=== PATIENT | female | born 1955 | race Caucasian/White ===

== ENCOUNTER 2024-10-31 13:41 | Emergency (ER) | payer MEDICARE, OTHER, SELFPAY ==
[2024-10-31 13:53] VITALS: BP 165/95; BMI 48.8
--- NOTE | 2024-10-31 14:00 | EDRN ---
Pt has severe upper arm and bilateral shoulder pain w/ posterior neck pain,unable to even slightly touch areas from neck or shoulders or upper arms as pt screaming in pain. Pt also has numbness and tingling in lower arms.
--- NOTE | 2024-10-31 14:16 | ED.GENMED ---
History of Present Illness
General
Chief Complaint: Fall
Source: patient, family and ambulance crew
Time Seen by Provider: 10/31/24 13:55
History of Present Illness
History of Present Illness:
69-year-old female apparently tripped falling forward walking out of a store. She hit her head had her arms extended. Complaining of severe bilateral shoulder pain and neck pain. Initially had some weakness to the right arm. Is complaining of
some ongoing tingling to the arms and legs at times. Significant pain manage prior to ER arrival. Denies chest pain abdominal pain or other complaints
Past History
Past History
ED Past Medical History: HTN and Hypercholesterolemia
ED Past Surgical History: Gynecological and Orthopedic
Phy Exam
Physical Exam
Physical Exam:
TRAUMA EXAM:
VITAL SIGNS: Vital signs reviewed, cooperative. Elevated BMI
DISTRESS: No active disease
EYES: Pupils reactive, no orbital trauma
NOSE: No deformity or epistaxis
FACE AND SCALP: 6 cm vertical superficial laceration to the right upper scalp. 3 cm slightly V-shaped laceration to the right eyebrow
NECK: Towels surrounding the neck immobilizing the neck.
RESPIRATORY: No distress, breath sounds normal, no tender chest wall
CARDIAC: No murmur, pulses equal and strong
ABDOMEN: Soft nontender bowel sounds normal
SKIN: Skin intact no bleeding, color normal
EXTREMITIES: Significant tenderness to both shoulders bilaterally. Some distal clavicle tenderness bilaterally. Range of motion was not tested originally.
NEUROLOGICAL: Alert, oriented, no motor deficits. Security Control Room Officer normal. Good lower extremity strength.
PSYCH: Mood affect normal
Course
Orders/Labs/Results
Orders:
Orders
10/31/24 14:00
CT Cervical Spine W/o Iv Contr Urgent
Comment:
Reason For Exam: trauma
CT Chest/abd/pel W Iv Cont Urgent
Reason For Exam: trauma
CT Head W/o Iv Contrast Urgent
Comment:
Reason For Exam: trauma
Cardiac Monitoring- Treatment ONCE
10/31/24 14:01
0.9% Sodium Chloride 500 ml [Nss] 500 ml IV BOLUS
10/31/24 14:42
HYDROmorphone [Dilaudid] 0.5 mg IV NOW STA
10/31/24 14:44
Complete Blood Count/With Diff Urgent
Comprehensive Metabolic Panel Urgent
Lipase Urgent
10/31/24 15:13
Type+Screen Urgent
[employer] Wristband Number:
Lidocaine/Epinephrine/Tetracai [Let Topical Anesthetic Gel] 3 ml TOPICAL NOW STA
Tetanus/Diphth/Acelpertussis [Adacel] 0.5 ml IM .ONCE ONE
10/31/24 15:19
ABO2 Urgent
[employer] Wristband Number:
Associate notified that ABO2 has been ordered: [id number]
Date: 10/31/24
Time: 15:20
Power Screwdriver Operator ID: [id number]
10/31/24 15:46
Acetaminophen 1000MG/100Ml [Ofirmev] 1,000 mg in 100 ml IV ONCE
Acetaminophen IV Indication:: ED Narcotic History-ONCE
10/31/24 16:13
HYDROmorphone [Dilaudid] 1 mg IV NOW STA
Abnormal Lab Results
10/31/24
14:44
RBC 2.98 L 10^6/uL
(4.20-5.40)
Hgb 9.0 L g/dL
(12.0-16.0)
Hct 27.6 L %
(37.0-47.0)
MCHC 32.6 L g/dL
(33.0-37.0)
Absolute Lymphs (auto) 1.0 L 10^3/uL
(1.2-3.4)
Neutrophils % 76.5 H %
(42.2-75.2)
Lymphocytes % 13.4 L %
(20.5-51.1)
Sodium 132 L mmol/L
(135-145)
BUN 47 H mg/dl
(7-17)
Creatinine 1.4 H mg/dL
(0.6-1.0)
Glucose 114 H mg/dl
(70-99)
Total Protein 6.1 L g/dl
(6.3-8.2)
10/31/24 14:44
10/31/24 14:44
Vital Signs
Initial and Last Documented VS:
Initial Vital Signs
Temp Pulse Resp BP Pulse Ox
97.7 F 74 12 165/95 100
10/31/24 13:53 10/31/24 13:53 10/31/24 13:53 10/31/24 13:53 10/31/24 13:53
Last Documented Vital Signs
Temp Pulse Resp BP Pulse Ox
97.7 F 80 15 153/85 95
10/31/24 13:53 10/31/24 16:30 10/31/24 16:30 10/31/24 16:28 10/31/24 16:28
Procedures
Laceration Closure
Right upper forehead:
Status of Wound: clean
Size of Wound in cm: 6
Description of Wound Edges: sharp
Preparation: cleaned with saline and cleaned with Betadine
Revision/Debridement: routine- no revision
Wound exploration: explored to base- no FB
Type of Closure: Dermabond-skin glue
Right eyebrow:
Status of Wound: clean
Size of Wound in cm: 3
Description of Wound Edges: sharp
Preparation: cleaned with saline and cleaned with Betadine
Anesthesia: 1% Lidocaine
Revision/Debridement: routine- no revision
Wound exploration: explored to base- no FB
Type of Closure: single layer closure
Skin Closure Material: 5-0 nylon
Number of sutures: 7
MDM/Problems Addressed
Differential Diagnosis Includes:
I am very concerned either about a cervical issue or bilateral shoulder issue. She could not tolerate a c-collar. She has a large BMI. Towels were placed around the neck bilaterally. Careful immobilization during CT scan. Very low clinical
suspicion for chest or abdominal trauma. Vital signs are stable.
*Radiology
Radiology exam reviewed: radiology read reviewed (No acute findings)
*Pulse Oximetry
SaO2: 100
Oxygen Mode of Delivery: Room air
Patient hypoxic: no
*Pie Icer Machine Interpretation
Rate: normal
Interpretation: normal
Heart Rate: 80
Rhythm: sinus
*Critical Care Note
Total Time (30-74mins, 75-104mins- exclusive of procedures): 50
Update Note
Update Note:
Trauma alert was called to expedite workup. I am concerned with a spinal issue with the initial tingling and numbness she had in her arms and legs. She currently has strength in her arms and legs. But is in severe pain complaining of bilateral
shoulder pain. She could not tolerate the cervical collar. She has support bilaterally with towels. I stressed to the nurse to be very careful about moving her. Family updated on my concerns
1515... CTs are all stable. Patient is remained stable. Ongoing severe bilateral shoulder pain and neck pain. No acute neurologic issues. Warrants transfer to trauma. Patient had a previous surgery at [place]. We are contacting them for
potential transfer. She is anemic but she states she is normally anemic.
1550... Family updated. Patient has remained stable. Neurologically stable. Transfer approved.
1630.... Collar placed. Carefully with head in traction.
ED Attending Note
-
Portions of this chart may have been created with voice recognition software.� Occasional wrong word or��sound alike� substitutions may have occurred due to the inherent limitations of voice recognition software.
Discharge Plan
Departure
Patient Disposition: Acute Care Hospital
Date of Disposition: 10/31/24
Time of Disposition: 15:37
Discharge Problem:
Trip/fall, Possible spinal cord injury, Head injury, Forehead laceration x 2
Prescriptions:
No Action
polyethylene glycol 3350 17 gram Powder In Packet
17 g PO DAILY
tizanidine 4 mg tablet
4 mg PO HS
tizanidine 4 mg tablet
4 mg PO DAILYPRN PRN (Reason: cramps)
Theragen Tablet
1 tab PO DAILY
acetaminophen 500 mg Tablet
500 mg PO BID
morphine 15 mg tablet extended release
15 mg PO BID
docusate sodium 100 mg Tablet
100 mg PO DAILY
magnesium 200 mg Tablet
200 mg PO DAILY
olmesartan 40 mg tablet
40 mg PO DAILY
hydrochlorothiazide 12.5 mg tablet
12.5 mg PO DAILY
oxycodone 10 mg tablet
10 mg PO Q6H
cholecalciferol (vitamin D3) 50 mcg (2,000 unit) Tablet
50 mcg PO DAILY
omega [id number]-[id number]-fish oil [Fish Oil] 1,000 (120-180) mg Capsule
1 cap PO DAILY
Referrals:
NONE,* [Family Provider, Internal Medicine]
Hospital Transfer
Other hospital: [facility]
I certify that the patient requires transfer: Yes
Discussed case with accepting physician: Vangie
Reason for transfer: higher level of care
Interventions
Interventions:
*Risk Screen - Suicide Last Done: 10/31/24 13:53
*General Assessment Last Done: 10/31/24 13:53
*Neglect/Abuse Screening Last Done: 10/31/24 13:53
*ED- Fall Risk Assessment Last Done: 10/31/24 13:53
*ED COVID-19 Vaccine History Last Done: 10/31/24 15:04
*Nursing Disposition Last Done: 10/31/24 16:46
ED-Musculoskeletal Assessment Last Done: 10/31/24 14:15
ED- Neurological Assessment Last Done: 10/31/24 14:15
ED-Skin Assessment Last Done: 10/31/24 14:17
Discharge Date and Time
Discharge Date/Time: 10/31/24 16:48
Print Language: S[place]
[2024-10-31] MEDS: DILAUDID 0.5 MG IV (14:48)
[2024-10-31] MEDS: NSS 500 IV (14:50)
[2024-10-31 14:55] LABS: Hematocrit 27.6 % (37.0-47.0); Hemoglobin 9.0 g/dL (12.0-16.0); Mean Corp Hgb Conc. 32.6 g/dL (33.0-37.0); Mean Corpuscular Volume 92.6 fL (81.0-99.0); Nucleated Red Blood Cells % 0 %; Platelet Count 226 10^3/uL (130-400); Red Cell Dist. Width 13.3 % (11.5-14.5)
[2024-10-31 15:00] VITALS: BP 154/85
[2024-10-31] MEDS: LET TOPICAL ANESTHETIC GEL 3 ML TOPICAL (15:17)
[2024-10-31 15:18] LABS: ALT (SGPT) 15 U/L (0-35); AST (SGOT) 19 U/L (14-36); Albumin 3.7 g/dl (3.5-5.0); Alkaline Phosphatase 89 U/L (38-126); Blood Urea Nitrogen 47 mg/dl (7-17); Calcium 9.5 mg/dl (8.4-10.2); Carbon Dioxide 23 mmol/L (22-30); Chloride 105 mmol/L (98-107); Estimated Creatinine Clearance 49 ml/min; Glucose 114 mg/dl (70-99); Lipase 285 U/L (23-300); Potassium 5.0 mmol/L (3.5-5.1); Sodium 132 mmol/L (135-145); Total Protein 6.1 g/dl (6.3-8.2); eGFR 40.73
[2024-10-31] MEDS: ADACEL 0.5 ML IM (15:20)
[2024-10-31 16:00] VITALS: BP 152/77
[2024-10-31] MEDS: OFIRMEV 100 IV (16:05)
[2024-10-31] MEDS: DILAUDID 1 MG IV (16:20)
[2024-10-31 16:28] VITALS: BP 153/85
== END 2024-10-31 16:48 | disposition short-term general hospital (02) ==
LOC: EMR 13:41
PROVIDERS: EMERGENCY PHYSICIAN Emergency Medicine
DX: S09.90XA Unspecified injury of head, initial encounter (principal); S01.81XA Laceration without foreign body of other part of head, initial encounter; S01.111A Laceration without foreign body of right eyelid and periocular area, initial encounter; R20.2 Paresthesia of skin; R20.0 Anesthesia of skin; M25.511 Pain in right shoulder; M25.512 Pain in left shoulder; R53.1 Weakness; W01.0XXA Fall on same level from slipping, tripping and stumbling without subsequent striking against object, initial encounter; Y93.01 Activity, walking, marching and hiking; Y92.512 Supermarket, store or market as the place of occurrence of the external cause; D64.9 Anemia, unspecified; Z23 Encounter for immunization; I10 Essential (primary) hypertension; E78.00 Pure hypercholesterolemia, unspecified; Z88.1 Allergy status to other antibiotic agents; Z88.0 Allergy status to penicillin; Z88.8 Allergy status to other drugs, medicaments and biological substances; Z91.048 Other nonmedicinal substance allergy status
CPT/HCPCS: 99291; 90471; 96374; 96375; 96361; 96376; 12015; 70450; 71260; 72125; 74177; 80053; 83690; 85025; 86850; 86900; 86901; 90715; Q9967